=== PATIENT | female | born 1935 | race Caucasian/White ===

== ENCOUNTER 2017-11-15 14:42 | Inpatient (IN) | payer MEDICARE, OTHER ==
[2017-11-15] MEDS: SOD CHLORIDE 0.9% 1,000 ML IV (16:24)
[2017-11-15] MEDS: METHYLPREDNISOLONE 125 MG INJ IV (16:24)
[2017-11-15] MEDS: FUROSEMIDE 40 MG INJ IV (16:25)
[2017-11-15] MEDS: morphine 2 MG INJ IV (16:25)
[2017-11-15] MEDS: ONDANSETRON 4 MG INJ IV ×2 (16:25→17:02)
[2017-11-15] MEDS: ALBUTEROL 0.083% (NEB) 2.5 MG/3 ML AMP NEB (16:25)
[2017-11-15] MEDS: IPRATROPIUM (NEB) 0.5 MG/2.5 ML AMP NEB (16:45)
[2017-11-15 16:46] LABS: ADD MAN DIFF? NO
[2017-11-15 16:49] LABS: BASOPHILS % 0.3 % (0.0-2.0); EOSINOPHILS # 0.1 10^3/ul (0.0-0.5); EOSINOPHILS % 0.9 % (0.0-7.0); HEMATOCRIT 31.8 % (37.0-47.0); HEMOGLOBIN 10.4 g/dl (12.0-16.0); LYMPHOCYTES # 0.8 10^3/ul (0.8-2.9); LYMPHOCYTES % 8.1 % (15.0-51.0); MEAN CORPUSCULAR HEMOGLOBIN 31.1 pg (29.0-33.0); MEAN CORPUSCULAR HGB CONC 32.7 g/dl (32.0-37.0); MEAN CORPUSCULAR VOLUME 95.2 fl (82.0-101.0); MEAN PLATELET VOLUME 9.1 fl (7.4-10.4); MONOCYTE # 0.9 10^3/ul (0.3-0.9); MONOCYTES % 9.4 % (0.0-11.0); NEUTROPHIL # 7.7 10^3/ul (1.6-7.5); NEUTROPHILS % 80.8 % (39.0-77.0); PLATELET COUNT 248 10^3/UL (140-415); RED BLOOD COUNT 3.34 10^6/ul (4.20-5.40); RED CELL DISTRIBUTION WIDTH 14.5 % (11.5-14.5)
[2017-11-15 16:49] LABS: WHITE BLOOD COUNT 9.5 10^3/ul (4.8-10.8)
[2017-11-15] MEDS ORDERED: SILDENAFIL 25 MG TAB PO (17:00)
[2017-11-15] MEDS: HYDROmorphONE 0.5 MG/0.5 ML SYG IV (17:02)
[2017-11-15 17:07] LABS: ALANINE AMINOTRANSFERASE 23 IU/L (13-69); ALBUMIN 3.7 g/dl (3.3-4.9); ALBUMIN/GLOBULIN RATIO 1.19; ALKALINE PHOSPHATASE 157 IU/L (42-121); ANION GAP 13 (8-16); ASPARTATE AMINO TRANSFERASE 57 IU/L (15-46); BILIRUBIN,INDIRECT 0.4 mg/dl (0-1.1); BILIRUBIN,TOTAL 0.4 mg/dl (0.2-1.3); BLOOD UREA NITROGEN 16 mg/dl (7-20); CALCIUM 8.9 mg/dl (8.4-10.2); CARBON DIOXIDE 37 mmol/L (21-31); CHLORIDE 85 mmol/L (97-110); CREATINE KINASE 166 IU/L (23-200); CREATININE 0.51 mg/dl (0.44-1.00); GLUCOSE 107 mg/dl (70-220); POTASSIUM 4.1 mmol/L (3.5-5.1); SODIUM 131 mmol/L (135-144); TOTAL PROTEIN 6.8 g/dl (6.1-8.1)
[2017-11-15 17:09] LABS: INR 0.95; PROTIME 12.8 Sec (11.9-14.9)
[2017-11-15 17:10] LABS: PARTIAL THROMBOPLASTIN TIME 33.9 Sec (25.0-35.0)
[2017-11-15 17:17] LABS: B-TYPE NATRIURETIC PEPTIDE 6180 PG/ML (0-450); CK-MB 8.33 ng/ml (0.0-2.4); TROPONIN-I 0.059 ng/ml (0.000-0.120)
[2017-11-15] MEDS: DIAZEPAM 5 MG TAB PO ×2 (17:47→21:00)
[2017-11-15] MEDS: SILDENAFIL 20 MG TAB PO ×2 (18:52→21:00)
[2017-11-15] MEDS ORDERED: ONDANSETRON 4 MG INJ IV (20:30)
[2017-11-15] MEDS ORDERED: ACETAMINOPHEN 325 MG TAB PO ×2 (20:30→21:00)
[2017-11-15] MEDS: FUROSEMIDE 20 MG TAB PO (21:00)
[2017-11-15] MEDS ORDERED: NACL 0.9% 3 ML SYG IV (21:00)
[2017-11-15] MEDS: [UNRECOGNIZED DRUG - REMARK] XX (21:24)
[2017-11-15] MEDS: [UNRECOGNIZED DRUG - REMARK] XX (21:24)
[2017-11-16 00:02] LABS: ADD UMIC NO; UR ASCORBIC ACID NEGATIVE (NEGATIVE); UR BILIRUBIN (Dip) NEGATIVE (NEGATIVE); UR BLOOD (Dip) NEGATIVE (NEGATIVE); UR CLARITY CLEAR (CLEAR); UR COLOR YELLOW (YELLOW); UR GLUCOSE (Dip) NEGATIVE (NEGATIVE); UR KETONES (Dip) NEGATIVE (NEGATIVE); UR LEUKOCYTE ESTERASE (Dip) NEGATIVE Leu/ul (NEGATIVE); UR NITRITE (Dip) NEGATIVE (NEGATIVE); UR SPECIFIC GRAVITY (Dip) 1.012 (1.003-1.030); UR TOTAL PROTEIN (Dip) NEGATIVE (NEGATIVE); UR UROBILINOGEN (Dip) NEGATIVE (NEGATIVE)
[2017-11-16] MEDS ORDERED: PENDING SANTYL ORDER FOR WOUND CARE XX (04:30)
[2017-11-16] MEDS: [UNRECOGNIZED DRUG - REMARK] XX ×2 (05:26→12:43)
[2017-11-16] MEDS: [UNRECOGNIZED DRUG - REMARK] XX ×2 (05:26→12:42)
[2017-11-16] MEDS: FUROSEMIDE 20 MG TAB PO ×2 (06:54→17:12)
[2017-11-16 07:27] LABS: ADD MAN DIFF? NO
[2017-11-16 07:31] LABS: WHITE BLOOD COUNT 11.3 10^3/ul (4.8-10.8)
[2017-11-16 07:31] LABS: ABNORMAL IP MESSAGE 1; BASOPHILS % 0.1 % (0.0-2.0); HEMATOCRIT 33.1 % (37.0-47.0); HEMOGLOBIN 10.6 g/dl (12.0-16.0); LYMPHOCYTES # 0.4 10^3/ul (0.8-2.9); LYMPHOCYTES % 3.5 % (15.0-51.0); MEAN CORPUSCULAR HEMOGLOBIN 31.5 pg (29.0-33.0); MEAN CORPUSCULAR VOLUME 98.5 fl (82.0-101.0); MEAN PLATELET VOLUME 9.2 fl (7.4-10.4); MONOCYTE # 0.8 10^3/ul (0.3-0.9); MONOCYTES % 7.4 % (0.0-11.0); NEUTROPHILS % 88.6 % (39.0-77.0); PLATELET COUNT 237 10^3/UL (140-415); RED BLOOD COUNT 3.36 10^6/ul (4.20-5.40); RED CELL DISTRIBUTION WIDTH 14.5 % (11.5-14.5)
[2017-11-16 07:35] LABS: POSITIVE DIFF @See below
[2017-11-16 07:48] LABS: HEMOGLOBIN A1C 5.4 % (0-5.9)
[2017-11-16 07:58] LABS: ALANINE AMINOTRANSFERASE 27 IU/L (13-69); ALBUMIN 3.5 g/dl (3.3-4.9); ALKALINE PHOSPHATASE 146 IU/L (42-121); ANION GAP 10 (8-16); ASPARTATE AMINO TRANSFERASE 47 IU/L (15-46); BILIRUBIN,INDIRECT 0.2 mg/dl (0-1.1); BILIRUBIN,TOTAL 0.2 mg/dl (0.2-1.3); BLOOD UREA NITROGEN 13 mg/dl (7-20); CALCIUM 8.6 mg/dl (8.4-10.2); CARBON DIOXIDE 38 mmol/L (21-31); CHLORIDE 91 mmol/L (97-110); CHOLESTEROL 149 mg/dl (100-200); CREATININE 0.45 mg/dl (0.44-1.00); GLUCOSE 139 mg/dl (70-220); HDL CHOLESTEROL 74 mg/dl (33-92); LDL CHOLESTEROL,CALCULATED 64 mg/dl; POTASSIUM 4.4 mmol/L (3.5-5.1); SODIUM 135 mmol/L (135-144); TOTAL PROTEIN 6.4 g/dl (6.1-8.1); TRIGLYCERIDES 57 mg/dl (0-149)
[2017-11-16] MEDS: HYDROCODONE/APAP (5/325) TAB PO (08:11)
[2017-11-16] MEDS: SENNA TAB PO ×2 (08:11→23:29)
[2017-11-16] MEDS: SILDENAFIL 20 MG TAB PO ×2 (08:13→20:16)
[2017-11-16] MEDS: MAGNESIUM OXIDE 400 MG TAB PO (09:43)
[2017-11-16] MEDS: PANTOPRAZOLE (EC) 40 MG TAB PO (09:43)
[2017-11-16] MEDS: HYDROmorphONE 0.5 MG/0.5 ML SYG IV (10:27)
[2017-11-16] MEDS ORDERED: morphine 2 MG INJ IV (11:30)
[2017-11-16] MEDS: DIAZEPAM 5 MG TAB PO ×2 (11:38→20:16)
[2017-11-16] MEDS ORDERED: GUAIFENESIN/DM 5ML CUP PO (12:00)
[2017-11-16] MEDS ORDERED: ALBUTEROL/IPRATROPIUM (NEB) 3 ML AMP HHN (12:00)
[2017-11-16] MEDS: CELECOXIB 100 MG CAP PO (12:28)
[2017-11-16] MEDS ORDERED: traMADol 50 MG TAB PO (13:00)
[2017-11-16] MEDS: traMADol 50 MG TAB PO ×2 (14:42→23:25)
[2017-11-16] MEDS ORDERED: MAGNESIUM HYDROXIDE 30ML CUP PO (23:30)
[2017-11-17] MEDS: CALCIUM LACTATE PO ×2 (01:17→09:24)
[2017-11-17] MEDS: [UNRECOGNIZED DRUG - OTHER] PO ×2 (01:18→09:24)
[2017-11-17] MEDS: POTASSIUM PO ×2 (01:18→09:24)
[2017-11-17] MEDS: traMADol 50 MG TAB PO ×2 (05:28→20:42)
[2017-11-17] MEDS: FUROSEMIDE 20 MG TAB PO (05:28)
[2017-11-17] MEDS: SENNA TAB PO ×4 (09:00→21:00)
[2017-11-17] MEDS: MAGNESIUM OXIDE 400 MG TAB PO (09:24)
[2017-11-17] MEDS: SILDENAFIL 20 MG TAB PO ×3 (09:24→21:00)
[2017-11-17] MEDS: CELECOXIB 100 MG CAP PO (09:24)
[2017-11-17] MEDS: FUROSEMIDE 40 MG INJ IV (10:22)
[2017-11-17 10:45] LABS: Allen Test ACCEPTAB; Arterial Base Excess 19.7 mmol/L (-3.0-3); Arterial Blood Gas Oxygen Sat 99.3 mmHG (95.0-100.0); Arterial COHb 0.4 % (0.0-3.0); Arterial Fraction of Oxyhgb 98.7 % (93.0-99.0); Arterial HCO3 52.1 mmol/L (22.0-26.0); Arterial MetHb 0.2 % (0.0-1.5); Arterial Total Hemglobin 11.2 g/dl (12.0-18.0); Arterial pCO2 126.7 mmhg (35-45); MODE MASK - SIMPLE; Site Left Radial
[2017-11-17] MEDS: SOD CHLORIDE 0.9% 100 ML (11:14)
[2017-11-17] MEDS: IOHEXOL 100 ML (11:14)
[2017-11-17] MEDS: NALOXONE (0.4 MG/ML) INJ IV (13:14)
[2017-11-17 14:00] LABS: AADO2 Arterial 98.9 mmHg (7.0-24.0); Allen Test ACCEPTAB; Arterial Base Excess 19.1 mmol/L (-3.0-3); Arterial COHb 0.6 % (0.0-3.0); Arterial Fraction of Oxyhgb 96.3 % (93.0-99.0); Arterial MetHb 0.1 % (0.0-1.5); Arterial Total Hemglobin 11.4 g/dl (12.0-18.0); Arterial pCO2 83.2 mmhg (35-45); Blood Gas IEPAP 15/5; MODE MASK - BIPAP; Site Left Radial
[2017-11-17] MEDS: CEFEPIME 1GM/50 ML (PMX) 50 ML IVPB (14:22)
[2017-11-17] MEDS: metroNIDAZOLE 500 MG/NS (PMX) 100 ML IVPB ×2 (14:22→20:43)
[2017-11-18] MEDS: ONDANSETRON 4 MG INJ IV (01:37)
[2017-11-18] MEDS: metroNIDAZOLE 500 MG/NS (PMX) 100 ML IVPB (05:49)
[2017-11-18 05:51] LABS: ADD MAN DIFF? NO
[2017-11-18 05:55] LABS: ABNORMAL IP MESSAGE 1; BASOPHILS % 0.3 % (0.0-2.0); HEMATOCRIT 33.3 % (37.0-47.0); HEMOGLOBIN 10.3 g/dl (12.0-16.0); LYMPHOCYTES # 0.5 10^3/ul (0.8-2.9); LYMPHOCYTES % 4.3 % (15.0-51.0); MEAN CORPUSCULAR HEMOGLOBIN 31.3 pg (29.0-33.0); MEAN CORPUSCULAR HGB CONC 30.9 g/dl (32.0-37.0); MEAN CORPUSCULAR VOLUME 101.2 fl (82.0-101.0); MEAN PLATELET VOLUME 9.3 fl (7.4-10.4); MONOCYTE # 0.9 10^3/ul (0.3-0.9); MONOCYTES % 8.6 % (0.0-11.0); NEUTROPHIL # 9.4 10^3/ul (1.6-7.5); NEUTROPHILS % 86.3 % (39.0-77.0); PLATELET COUNT 237 10^3/UL (140-415); RED BLOOD COUNT 3.29 10^6/ul (4.20-5.40); RED CELL DISTRIBUTION WIDTH 14.6 % (11.5-14.5)
[2017-11-18 05:55] LABS: WHITE BLOOD COUNT 10.8 10^3/ul (4.8-10.8)
[2017-11-18 05:57] LABS: POSITIVE DIFF @See below
[2017-11-18 06:19] LABS: BLOOD UREA NITROGEN 19 mg/dl (7-20); CALCIUM 9.3 mg/dl (8.4-10.2); CHLORIDE 87 mmol/L (97-110); GLUCOSE 97 mg/dl (70-220); POTASSIUM 4.1 mmol/L (3.5-5.1); SODIUM 138 mmol/L (135-144)
[2017-11-18 06:32] LABS: ANION GAP 9 (8-16); CARBON DIOXIDE 46 mmol/L (21-31)
[2017-11-18] MEDS: MAGNESIUM OXIDE 400 MG TAB PO (09:00)
[2017-11-18] MEDS: SILDENAFIL 20 MG TAB PO (09:00)
[2017-11-18] MEDS: CELECOXIB 100 MG CAP PO (09:00)
[2017-11-18] MEDS: SENNA TAB PO ×2 (09:00)
[2017-11-18] MEDS: BALSAM PERU/CASTOR OIL 60 GM TUBE TOP (09:34)
[2017-11-18] MEDS: FUROSEMIDE 40 MG INJ IV (09:35)
[2017-11-18] MEDS: traMADol 50 MG TAB PO (12:18)
[2017-11-18] MEDS ORDERED: DIAZEPAM 5 MG TAB PO (12:30)
[2017-11-18] MEDS: CEFEPIME 1GM/50 ML (PMX) 50 ML IVPB ×2 (13:28→13:45)
[2017-11-18] MEDS ORDERED: morphine LIQ (20 MG/ML PO SYG) PO (17:00)
[2017-11-18] MEDS ORDERED: PROCHLORPERAZINE 10 MG TAB PO (17:00)
[2017-11-18] MEDS ORDERED: ACETAMINOPHEN 650 MG SUPP PR (17:30)
[2017-11-18] MEDS ORDERED: morphine LIQ (20 MG/ML PO SYG) SL (17:30)
[2017-11-18] MEDS: morphine LIQ (10 MG/5 ML) CUP PO ×2 (17:39→21:24)
[2017-11-18] MEDS: LORAZEPAM 1 MG TAB PO (23:34)
[2017-11-19] MEDS: morphine LIQ (10 MG/5 ML) CUP PO ×9 (01:00→23:42)
[2017-11-19] MEDS: BISACODYL 10 MG SUPP PR (23:23)
[2017-11-20] MEDS ORDERED: LORAZEPAM 1 MG TAB SL (00:34)
[2017-11-20] MEDS: morphine LIQ (10 MG/5 ML) CUP PO ×5 (00:50→09:16)
[2017-11-20] MEDS: LORAZEPAM 0.5 MG TAB SL (01:44)
[2017-11-20] MEDS ORDERED: morphine (DRIP) 100 MG/100 ML 100 ML IV (12:00)
[2017-11-20] MEDS ORDERED: LORAZEPAM 2 MG INJ IV (12:00)
[2017-11-20] MEDS: LORAZEPAM 2 MG INJ IV ×6 (13:00→20:23)
[2017-11-20] MEDS: morphine (DRIP) 100 MG/100 ML 100 ML IV ×4 (13:08→21:23)
[2017-11-21] MEDS: LORAZEPAM 2 MG INJ IV ×7 (00:30→21:00)
[2017-11-21] MEDS: morphine (DRIP) 100 MG/100 ML 100 ML IV ×3 (00:34→17:24)
[2017-11-21] MEDS: ATROPINE 1% 5 ML OPH SL ×2 (14:22→16:40)
[2017-11-22] MEDS ORDERED: VITAMIN A & D 5 GM OINT PACKET TOP (00:10)
[2017-11-22] MEDS: LORAZEPAM 2 MG INJ IV ×4 (01:00→12:58)
[2017-11-22] MEDS: morphine (DRIP) 100 MG/100 ML 100 ML IV ×3 (01:59→16:36)
== END 2017-11-22 21:45 | disposition expired | DRG 551 ==
LOC: MS4 20:08 → E/R 14:42 → ICU 11-17 10:58 → PP2 11-18 11:53 → MS4 11-16 12:03
PROC: 5A09357 Assistance with Respiratory Ventilation, Less than 24 Consecutive Hours, Continuous Positive Airway Pressure (ICD-10-PCS; principal; 2017-11-17)
DX: S32.10XA Unspecified fracture of sacrum, initial encounter for closed fracture (principal); J96.21 Acute and chronic respiratory failure with hypoxia; J96.22 Acute and chronic respiratory failure with hypercapnia; G93.41 Metabolic encephalopathy; F11.20 Opioid dependence, uncomplicated; J44.1 Chronic obstructive pulmonary disease with (acute) exacerbation; J44.9 Chronic obstructive pulmonary disease, unspecified; I27.20 Pulmonary hypertension, unspecified; M41.9 Scoliosis, unspecified; I25.10 Atherosclerotic heart disease of native coronary artery without angina pectoris; F41.9 Anxiety disorder, unspecified; M54.5 Low back pain; I10 Essential (primary) hypertension; Z99.81 Dependence on supplemental oxygen; Z79.891 Long term (current) use of opiate analgesic; Z91.81 History of falling; G89.4 Chronic pain syndrome
CPT/HCPCS: 36600; 71045; 71275; 72131; 80048; 80053; 80061; 81003; 82550; 82553; 82803; 83036; 83735; 83880; 84443; 84484; 85025; 85610; 85730; 87040; 87081; 87086; 93005; 93306; 94660; 96374; 96375; 96376; 99285-25